=== PATIENT | male | born 1970 | race Caucasian/White ===

== ENCOUNTER 2020-06-29 06:54 | Outpatient (NON) | payer OTHER, SELFPAY ==
[2020-06-29 22:09] LABS: SARS-CoV-2 RNA PCR Negative
== END 2020-06-29 06:55 ==
LOC: ANHCOVIDDT 07:09
PROVIDERS: PCP Internal Medicine; Visit Provider Clinical Nurse Specialist
DX: J02.9 Acute pharyngitis, unspecified (principal); Z20.828 Contact with and (suspected) exposure to other viral communicable diseases
CPT/HCPCS: 87635; C9803; U0003

== ENCOUNTER 2022-02-11 06:30 | Emergency (ER) | payer OTHER, SELFPAY ==
--- NOTE | ~2022-02-11 | CT_ITS ---
EXAMINATION: CT abdomen pelvis w con INDICATION: Chest pain radiating to the abdomen TECHNIQUE: Computed tomographic images of the abdomen and pelvis were obtained after the administrati on of 100 cc of Omnipaque 350 intravenous contrast. The dose-length product (DLP) was 1105.74 mGy-cm. Automated exposure control and iterative reconstruction technique were employed. COMPARISON: 01/01/2011 FINDINGS: Stable nodules on the visualized lung bases are consistent with old granulomatous disease. The heart size is normal. There is mild atelectasis. The liver, spleen, pancreas, and adrenal glands are normal. There appear to be stones in the nondistended gallbladder. The kidneys are unremarkable. No pathologically enlarged abdominal or pelvic lymph nodes are identified. There is no free intraperi toneal gas or evidence of bowel obstruction. Colonic diverticulosis is present without evidence of di verticulitis. The appendix is normal. There is mild lumbar spondylosis. IMPRESSION: 1. Possible cholelithiasis. No definite CT correlate for the patient's symptoms. Reviewed, dictated and finalized at location A. IMPRESSION: 1. Possible cholelithiasis. No definite CT correlate for the patient's symptoms .
--- NOTE | ~2022-02-11 | XR_ITS ---
EXAMINATION: XR chest 2V DATE: 02/11/2022 07:24 INDICATION: Chest pain, elevated blood pressure TECHNIQUE: PA and lateral views of the chest are obtained. COMPARISON: None available FINDINGS: The lungs are free of acute opacities. No pleural effusion or pneumothorax. The cardiomedia stinal silhouette is normal. The visualized bones and soft tissues are unremarkable. IMPRESSION: 1. No acute cardiopulmonary abnormality. Reviewed, dictated and finalized at location A.
--- NOTE | 2022-02-11 06:36 | ECG_ITS ---
Measurements Intervals [place] Rate: 59 P: 74 PA: 143 QRS: 12 QRSD: 89 T: 34 QT: 394 QTc: 393 Interpretive Statements SINUS BRADYCARDIA BORDERLINE ECG NO PREVIOUS ECG AVAILABLE FOR COMPARISON Electronically Signed On 02-11-2022 14:39:52 CDT by Rajinder Perez M.D.
[2022-02-11 06:37] VITALS: BP 144/60; PULSE 64; RESP 20; TEMP 36.8; O2SAT 100
[2022-02-11 06:50] LABS: Basophils Absolute Auto 0.1 K/mm3 (0.0-0.1); Basophils Percent Auto 0.6 % (0.2-1.2); Eosinophils Absolute Auto 0.3 K/mm3 (0-0.3); Eosinophils Percent Auto 3.9 % (0-4.4); Hematocrit 46.3 % (42.0-52.0); Hemoglobin 14.9 g/dL (14.0-18.0); Immature Granulocyte Absolute 0.03 K/mm3 (0.00-0.031); Immature Granulocyte Percent A 0.4 % (0-0.5); Lymphocytes Absolute Auto 2.65 K/mm3 (0.9-3.2); Lymphocytes Percent Auto 33.2 % (18.3-44.2); Mean Corpuscular HGB Conc 32.2 g/dl (32-36); Mean Corpuscular Hemoglobin 29.4 pg (26-34); Mean Corpuscular Volume 91.3 fl (80-100); Mean Platelet Volume 8.8 fl (7.4-10.4); Monocytes Absolute Auto 0.8 K/mm3 (0.1-0.6); Monocytes Percent Auto 9.9 % (2.6-8.5); Neutrophils Absolute Auto 4.1 K/mm3 (1.3-6.7); Platelet Count Result 249 k/mm3 (150-375); Red Blood Count 5.07 M/mm3 (4.6-6.20); Red Cell Distribution Width 13.5 % (11.5-14.5)
[2022-02-11 07:01] LABS: Alanine Aminotransferase 23 U/L (6-50); Albumin Level 4.5 g/dL (3.5-5.1); Alkaline Phosphatase 77 U/L (38-126); Anion Gap 10 mmol/L (8-16); Aspartate Amino Transferase 27 U/L (17-59); Bilirubin,Total 0.3 mg/dL (0.2-1.3); Blood Urea Nitrogen 12 mg/dL (9-20); Calcium 8.9 mg/dL (8.4-10.2); Carbon Dioxide 28 mmol/L (22-30); Chloride 108 mmol/L (98-107); Estimated CRCL calculation 102 ml/min; Estimated Glomerular Filt Rate > 60; Glucose 123 mg/dL (65-110); Lipase 72 U/L (23-300); Potassium 4.1 mmol/L (3.4-5.0); Sodium 146 mmol/L (137-145)
[2022-02-11 07:04] LABS: Partial Thromboplastin Time 27.5 SECONDS (22.3-36.8); Prothrombin Time 12.9 Seconds (11.1-14.7)
[2022-02-11 07:08] VITALS: BP 186/94; PULSE 57; RESP 20; O2SAT 99
--- NOTE | 2022-02-11 07:09 | ED.CHESTPAIN ---
HPI - Chest Pain General Chief Complaint: Chest Pain Stated Complaint: CP Time Seen by Provider: 02/11/22 07:09 Source: patient and family Mode of arrival: ambulatory Limitations: no limitations History of Present Illness HPI narrative: 51 years old white female presented to the ED complaining of chest pain, at the center, radiate down to his upper abdomen woke him up at 4:30 AM. Patient under tremendous amount of stress lately, his father is dying on the vent. Patient denies any fever, chills, nausea, vomiting. Patient took some of his Pepcid without improvement, received 0.5 mg of Ativan with slight improvement Related Data Allergies Allergy/AdvReac Type Severity Reaction Status Date / Time Penicillins Allergy Unknown HIVES Verified 02/11/22 06:39 Review of Systems Review of Systems: All systems reviewed & are unremarkable except as noted in HPI and below PMFSH Past Medical History Medical History Anxiety Bilateral inguinal hernia Uncomplicated 2004, 2009 Palpitations Umbilical hernia Family History Family History Mother Patient's mother is in good health Social History Social History Social History: Caffeine-daily Smoking status: Never smoker Alcohol intake: current Alcohol use details: socially Exam Narrative: General appearance: Well-developed, well-nourished Skin: Normal color Head: Normocephalic, nontraumatic Eyes: Clear conjunctiva ENT: Oropharynx normal, ears normal, nose normal Neck: Supple, nontender Chest and respiratory: Airway patent, no respiratory distress, no accessory muscle use Heart: Regular rate/rhythm Abdomen: Soft, nontender, no organomegaly, quiet bowel sounds Vascular: Normal peripheral pulses, normal capillary refill. Musculoskeletal: Normal range of motion, nontender back Neurologic: Alert and oriented ?3, SULFUR BURNER is normal as tested, no gross motor deficit Course Course Emergency Course: Work-up did not show any significant finding to explain patient condition. Anxiety-like symptom is my concern. Vital Signs Vital signs: Vital Signs Temperature 36.8 C 02/11/22 06:37 Pulse Rate 64 02/11/22 06:37 Respiratory Rate 20 02/11/22 06:37 Blood Pressure 144/60 H 02/11/22 06:37 Pulse Oximetry 100 02/11/22 06:37 Oxygen Delivery Room Air 02/11/22 06:37 Temperature 36.8 C 02/11/22 06:37 Pulse Rate 57 L 02/11/22 07:08 Respiratory Rate 20 02/11/22 07:08 Blood Pressure 186/94 H 02/11/22 07:08 Pulse Oximetry 99 02/11/22 07:08 Oxygen Delivery Room Air 02/11/22 06:37 MDM - Chest Pain Lab Data Result diagrams: 02/11/22 06:41 02/11/22 06:41 Labs: Lab Results 02/11/22 02/11/22 02/11/22 Range/Units 06:41 06:41 06:41 WBC 8.0 (4.5-10.0) K/mm3 RBC 5.07 (4.6-6.20) M/mm3 Hgb 14.9 (14.0-18.0) g/dL Hct 46.3 (42.0-52.0) % MCV 91.3 (80-100) fl MCH 29.4 (26-34) pg MCHC 32.2 (32-36) g/dl RDW 13.5 (11.5-14.5) % Plt Count 249 (150-375) k/mm3 MPV 8.8 (7.4-10.4) fl Immature Gran % (Auto) 0.4 (0-0.5) % Neut % (Auto) 52.0 (45.5-73.1) % Lymph % (Auto) 33.2 (18.3-44.2) % Wallace % (Auto) 9.9 H (2.6-8.5) % Eos % (Auto) 3.9 (0-4.4) % Baso % (Auto) 0.6 (0.2-1.2) % Lymph # (Auto) 2.65 (0.9-3.2) K/mm3 Wallace # (Auto) 0.8 H (0.1-0.6) K/mm3 Eos # (Auto) 0.3 (0-0.3) K/mm3 Baso # (Auto) 0.1 (0.0-0.1) K/mm3 Abs Immat Gran (auto) 0.03 (0.00-0.031) K/mm3 Absolute Neuts (auto) 4.1 (1.3-6.7)
[2022-02-11 07:12] LABS: Troponin I < 0.012 ng/mL (0.000-0.034)
[2022-02-11 07:21] VITALS: O2SAT 99
[2022-02-11] MEDS: ASPIRIN 81 MG CHEWABLE TABLET 324 MG PO (07:27)
[2022-02-11 09:41] VITALS: BP 141/95; PULSE 56; RESP 20; O2SAT 98
[2022-02-11 09:57] LABS: Troponin I < 0.012 ng/mL (0.000-0.034)
[2022-02-11 10:05] VITALS: BP 141/95; PULSE 58; RESP 22; O2SAT 97
== END 2022-02-11 10:06 | disposition home or self-care (01) ==
PROVIDERS: Preventive Medicine Aerospace Medicine; Emergency Provider Emergency Medicine; PCP Internal Medicine
DX: R07.89 Other chest pain (principal); F41.9 Anxiety disorder, unspecified; R93.2 Abnormal findings on diagnostic imaging of liver and biliary tract; R00.1 Bradycardia, unspecified
CPT/HCPCS: 36415; 71046; 74177; 80053; 83690; 84484; 85025; 85610; 85730; 93005; 99284; A9270; Q9967

== ENCOUNTER 2025-04-22 06:18 | Emergency (ER) | payer OTHER, SELFPAY ==
[2025-04-22] VITALS (10 sets, daily range): BP systolic 137–181; BP diastolic 65–115; PULSE 61–88; RESP 14–20; TEMP 36.6; O2SAT 93–100
--- NOTE | ~2025-04-22 | XR_ITS ---
Examination: XR chest 2V Clinical History: pain middle of chest Comparison: 02/11/2022 Technique: PA and Lateral Findings: Heart size upper limit of normal. Lungs clear. No acute bony abnormality. IMPRESSION: 1. No acute cardiopulmonary findings. Reviewed, dictated and finalized at location R.
--- NOTE | ~2025-04-22 | US_ITS ---
US abdomen limited Indication: Epigastric pain Comparison: None Technique: Hoffmann-scale and color Doppler images were obtained. Findings: LIVER: Moderate increased echogenicity of the liver. . GALLBLADDER/BILIARY: There is cholelithiasis, no wall thickening, no pericholecystic fluid. CBD 4 mm. [place] sign negative. PANCREAS: Pancreas limited by bowel gas. Right Kidney: The right kidney was not imaged. Impression: 1. Cholelithiasis. Moderate hepatic steatosis Reviewed, dictated and finalized at location P. Impression: 1. Cholelithiasis. Moderate hepatic steatosis
--- NOTE | ~2025-04-22 | CT_ITS ---
EXAMINATION: CTA chest abdomen pelvis DATE: 04/22/2025 09:56 INDICATION: Epigastric discomfort radiating to the back TECHNIQUE: Computed tomographic angiography (CTA) of the chest, abdomen and pelvis was performed with 100 cc of Omnipaque-350 intravenous contrast. Additional 3D reconstructions utilizing rotating maximum intensity projection (MIP) were performed. Automated exposure control and iterative reconstruction technique were employed. The dose-length product was 1121.25 mGy-cm. COMPARISON: CT abdomen pelvis dated 02/11/2022 FINDINGS: Chest: Mild dependent atelectasis in the bilateral lower lobes. Unchanged 3 mm noncalcified granulomata the dependent left lower lobe. No pneumonia, pulmonary edema, pleural effusion or pneumothorax. Heart size is normal. No pericardial effusion. Thoracic aorta is normal in caliber with no dissection. No path ologically enlarged thoracic lymphadenopathy. Mild thoracic spondylosis. Abdomen and pelvis: Diffuse hepatic steatosis with focal sparing along the gallbladder fossa. Subtle haziness to the fat abutting the otherwise normal-appearing gallbladder and mild increased prominence of the pericholecystic vasculature which raises some concern for acute cholecystitis. The spleen, pancreas, right kidney and bilateral adrenal glands are normal. Couple low-attenuation left renal cysts the larger measuring 1 cm. Mild diverticulosis along the descending and sigmoid colon without adjacent inflammatory stranding to suggest diverticulitis. Small bowel and appendix are normal. Postoperative change of prior umbilical hernia repair. Bladder is normal. Mild prostatomegaly measuring 4.5 x 3.6 cm. No free intraperitoneal gas or fluid. No pathologically enlarged abdominal or pelvic lymphadenopathy. Abdominal aorta is normal in caliber with no aneurysm or dissection. Minimal scattered nonhemodynamically significant atherosclerotic plaque along the inferior abdominal aorta and a few of the arteries in the pelvis. Mild lumbar levocurvature with mild spondylosis. Mild osteoarthritis at the bilateral hips with subarticular sclerosis at the superior to anterosuperior right femoral head and the anterosuperior left femoral head consistent with osteonecrosis. IMPRESSION: 1. Unremarkable CT angiography of the chest, abdomen and pelvis with no evident aneurysms, hemodynamically significant stenosis or dissection. 2. Mild pericholecystic hyperemia and subtle inflammatory stranding which raises some suspicion for acute cholecystitis. Correlate for Barriga sign and could consider right upper quadrant ultrasound for further evaluation as clinically indicated. 3. Diffuse hepatic steatosis. 4. Osteonecrosis at the bilateral femoral heads Reviewed, dictated and finalized at location A. IMPRESSION: 1. Unremarkable CT angiography of the chest, abdomen and pelvis with no evident aneurysms, hemodynamically significant stenosis or dissection. 2. Mild pericholecystic hyperemia and subtle inflammatory stranding which raise s some suspicion for acute cholecystitis. Correlate for Barriga sign and could c onsider right upper quadrant ultrasound for further evaluation as clinically in dicated. 3. Diffuse hepatic steatosis. 4. Osteonecrosis at the bilateral femoral heads
--- OUTSIDE RECORDS SUMMARY | 2025-04-22 06:21 | XMS_ITS | Clinical Summary ---
Author Organization [facility] Address [address] [place] [address] Care Team Providers Care Legal Archivist Name Role Phone Unknown, Provider Primary Care Provider Unavaila ble Source Comments [facility],non-owned Affiliates and Associated Physician Practices is amultiple site organization consisting of ambulatory clinics and hospital sitesin [place], [place], [place] and [place]. This disclosure is being madepursuant to the Care Everywhere program and may not contain all information available regarding this patient. Last updated 18.[facility] Allergies Active Allergy Reactions Criticality Noted Date Comments Penicillins Unknown 07/14/2021 Medications * Be aware that medications may not be up to date on this document. Alwaysverify current medications with the patient. sertraline (Zoloft) 100 MG tablet Take 1 (one) tablet by mouth once daily 4 Active Zepbound 2.5 MG/0.5ML injection Inject 2.5 (two and one-half) mg subcutaneously every 7 days (once a week) 5 Active Active Problems Problem Noted Date Diagnosed Date Neoplasm of uncertain behavior of skin 4 Melanocytic nevi of trunk 12/09/2023 Seborrheic keratosis 12/09/2023 Lentigines 12/09/2023 Actinic keratosis 12/09/2023 Social History Tobacco Use Types Packs/Day Years Used Date Smoking Tobacco: Never Smokeless Tobacco: Never Tobacco Cessation:Counseling Given: Not Answered Sex and Gender Information Value Date Recorded Sex Assigned at Not on file Legal Sex Male 12:21 PM CDT Gender Identity Not on file Sexual Orientation Not on file Plan of Treatment Upcoming Encounters Date Type Department Care Team (Late st Contact Info) Description 06/01/2025 8:50 AM TAXICAB COORDINATOR Office Visit [facility] - Dermatology [address] [place] [address] Frantz Sosa MD [address] [place] [address] Health Maintenance Due Date Last Done Comments COLOGUARD (AGES 45-75) - COL ON CA SCREENING 1970 COLON MONITORING 1970 COLONOSCOPY - COLON CA SCREENING 1970 CT COLONOGRAPHY - COLON CA SCREENING 1970 Colorectal Cancer Screening 1970 FIT - COLON CA SCREENING 1970 FLEX SIG - COLON CA SCREENING 1970 LIPID TESTING 1970 HIV SCREENING 1985 HEPATITIS C SCREENING 03/26/1988 DTAP/TDAP/TD VACCINES (1 - Tdap) 1989 HEPATITIS B VACCINE (1 of 3 - 19+ 3-dose series) 1989 PNEUMOCOCCAL VACCINE 50+ (1 of 1 - PCV) 2020 ZOSTER VACCINE (1 of 2) 2020 DEPRESSION SCREENING 07/01/2024 COVID-19 VACCINE (1 - 2023-2 5 season) 2025 INFLUENZA VACCINE (#1) 2025 HIB VACCINE Aged Out No longer eligi ble based on patient's age to complete this topic HPV VACCINE Aged Out No longer eligi ble based on patient's age to complete this topic MENINGOCOCCAL (Group B) VACC INE SHARED DECISION-MAKING Aged Out No longer eligibl e based on patient's age to complete this topic MENINGOCOCCAL GROUPS A/C/Y/W VACCINE Aged Out No longer eligible b ased on patient's age to complete this topic Insurance AETNA AETNA Care Teams Legal Archivist Relationship Specialty Start Date End Date Unknown, Provider PCP - General 01/03/23
--- OUTSIDE RECORDS SUMMARY | 2025-04-22 06:21 | XMS_ITS | Encounter Summary ---
Author Organization [facility] Address [address] [place] [address] Care Team Providers Care Sailboat Captain Name Role Phone Unknown, Provider Primary Care Provider Unavaila ble Encounter Details Date Type Department Care Team (Late Contact Info) Description 12/20/2023 Telephone [facility] - Dermatology [address] [place] [phone] Nadja Solorzano MD [address] [place] [phone] Social History Tobacco Use Types Packs/Day Years Used Date Smoking Tobacco: Never Smokeless Tobacco: Never Sex and Gender Information Value Date Recorded Sex Assigned at Not on file Legal Sex Male 12:21 PM CDT Gender Identity Not on file Sexual Orientation Not on file documented as of this encounter Miscellaneous Notes * Telephone Encounter - Laurence Wilkes - 12/20/2023 10:59 AM CDT Booked patient 02/25/24 at 10:50 Left message with patient. documented in this encounter Plan of Treatment Upcoming Encounters Date Type Department Care Team (Late st Contact Info) Description 06/01/2025 8:50 AM BULK RECEIVER Office Visit [facility] - Dermatology [address] [place] [phone] Frantz Sosa MD [address] [place] [phone] documented as of this encounter Visit Diagnoses Not on filedocumented in this encounter Care Teams Sailboat Captain Relationship Specialty Start Date End Date Unknown, Provider PCP - General 01/03/23 documented as of this encounter
--- NOTE | 2025-04-22 06:28 | ECG_ITS ---
Test Date: 2025-04-22 06:30:08 Measurements Intervals [place] Rate: 66 P: 83 MA: 132 QRS: 10 QRSD: 96 T: 50 QT: 384 QTc: 403 Interpretive Statements SINUS RHYTHM WITH OCCASIONAL VENTRICULAR PREMATURE COMPLEXES BORDERLINE ST-T WAVE ABNORMALITY- HIGH LATERAL LEADS BASELINE ARTIFACT- AVF, V3 BORDERLINE ECG No previous ECG available for comparison Electronically Signed On 04-22-2025 07:49:05 CDT by Lai Singh D.O.
[2025-04-22 06:42] LABS: Hematocrit 48.4 % (42.0-52.0); Hemoglobin 16.0 g/dL (14.0-18.0); Immature Granulocyte Percent A 0.3 % (0-0.5); Lymphocytes Absolute Auto 3.00 K/mm3 (0.9-3.2); Mean Corpuscular HGB Conc 33.1 g/dl (32-36); Mean Corpuscular Hemoglobin 29.4 pg (26-34); Mean Corpuscular Volume 88.8 fl (80-100); Nucleated Red Blood Cells Absolute Auto 0.000 K/mm3 (0.0-0.012); Nucleated Red Blood Cells Perc 0.0 % (0.0-0.2); Platelet Count Result 312 k/mm3 (150-375); Red Blood Count 5.45 M/mm3 (4.6-6.20); White Blood Count 9.7 K/mm3 (4.5-10.0)
[2025-04-22] MEDS: ONDANSETRON INJ 4 MG/2 ML VIAL IV PUSH (06:50)
[2025-04-22 06:54] LABS: Alanine Aminotransferase 25 U/L (6-50); Albumin Level 4.8 g/dL (3.5-5.1); Alkaline Phosphatase 87 U/L (38-126); Anion Gap 9 mmol/L (4-12); Aspartate Amino Transferase 29 U/L (17-59); Bilirubin,Total 0.5 mg/dL (0.2-1.3); Blood Urea Nitrogen 15 mg/dL (9-20); Calcium 10.8 mg/dL (8.4-10.2); Carbon Dioxide 28 mmol/L (22-30); Chloride 102 mmol/L (98-107); Estimated CRCL calculation 92 ml/min; Estimated Glomerular Filt Rate > 60; Glucose 113 mg/dL (65-110); INR 1.0; Lipase 79 U/L (23-300); Partial Thromboplastin Time 26.0 Seconds (22.3-36.8); Potassium 4.0 mmol/L (3.4-5.0); Prothrombin Time 13.0 Seconds (11.1-14.7); Sodium 139 mmol/L (137-145); Total Protein 8.8 g/dL (6.3-8.2)
[2025-04-22 07:05] LABS: Troponin I < 0.012 ng/mL (0.000-0.034)
--- NOTE | 2025-04-22 07:22 | ED.GENADULT ---
HPI - General Adult General Chief complaint: Chest Pain Stated complaint: chest pain Time Seen by Provider: 04/22/25 06:59 History of Present Illness HPI narrative: Is a 55-year-old male history of anxiety presenting for chest pain/ epigastric pain. Patient says that 3 M he was woken from sleep by a burning sensation. Originally thought it was in his chest but now he believes it is really in the epigastric area. The pain is nonradiating. It is moderate in intensity. He had pain like this once before when he was very stressed when his father was going to pass away. He states he is very stressed now due to issues with his adult children. He is nauseous without vomiting. No shortness of breath. No diarrhea. He took Tums and Prilosec with no relief. Related Data Allergies Allergy/AdvReac Type Severity Reaction Status Date / Time Penicillins Allergy Unknown HIVES Verified 04/22/25 06:19 [facility] Past Medical History Medical History Screening for metabolic disorder Screening for metabolic disorder Hospital discharge follow-up Bilateral inguinal hernia Uncomplicated 2004, 2009 Palpitations Umbilical hernia Anxiety Family History Family History Mother Patient's mother is in good health Social History Social History Social History: Caffeine-daily Smoking status: Never smoker Alcohol intake: current Alcohol use details: socially Do You Feel Safe in your Home?: Yes Lack of Transportation: No Lack of Food: Never True Current Housing: I Have Housing Concerned About Future Housing: No Difficulty Paying Gas/Electric Bills: No Difficulty Paying for Meds: No Currently Unemployed: No Education: Master's Degree or Higher Difficulty w/ Childcare or Family Care: No Exam Narrative: APPEARANCE: No apparent distress. Head: atraumatic. EYES: EOMI, NOSE: Atraumatic NECK: Trachea midline RESPIRATORY: No increased rate of breathing Clear to auscultation CARDIOVASCULAR: RRR, no peripheral edema ABDOMINAL: tenderness in the epigastric region without guarding or rebound MUSCULOSKELETAl: No obvious deformities NEURO: Alert. Moving 4/4 extremities SKIN:: Warm, dry. Normal color PSYCHIATRIC: Normal affect Course Vital Signs Vital signs: Vital Signs Temperature 97.8 F 04/22/25 06:28 Pulse Rate 70 04/22/25 06:28 Respiratory Rate 14 04/22/25 06:28 Blood Pressure 181/97 H 04/22/25 06:28 Pulse Oximetry 99 04/22/25 06:28 Oxygen Delivery Room Air 04/22/25 06:28 Temperature 97.8 F 04/22/25 06:28 Pulse Rate 88 04/22/25 10:54 Respiratory Rate 18 04/22/25 10:54 Blood Pressure 152/87 H 04/22/25 10:54 Pulse Oximetry 97 04/22/25 10:54 Oxygen Delivery Room Air 04/22/25 06:28 Medical Decision Making MDM Narrative Medical decision making narrative: -Course: 55-year-old male presenting with epigastric pain. Based on history physical peptic ulcer disease as gastritis or the leading differential. Patient's laboratory studies, CTA chest abdomen pelvis and right upper quadrant ultrasound were all negative. Eventually we were able to get the patient's pain under control with multiple rounds of antiemetics and antacids. He eventually needed Valium as he was very anxious and I felt that that was impacting the care that we could provide. I did sit down with the patient discussed all of his results at the end. He has verbalized his understanding. He will be discharged on Protonix/Carafate. He will be given referral to GI for further evaluation treatment. Given return precautions for severe pain, hematemesis, melena or any new or worsening symptoms. -DDX includes but is not limited to: ACS gastritis/ PUD/GERD, pancreatitis -Co-morbidities complicating care: anxiety -External Chart Review: review visit from January 2022 for identical presentation during a period of high stress. Vital Signs Vital Signs: Vital Signs Temperature 97.8 F 04/22/25 06:28 Pulse Rate 70 04/22/25 06:28 Respiratory Rate 14 04/22/25 06:28 Blood Pressure 181/97 H 04/22/25 06:28 Pulse Oximetry 99 04/22/25 06:28 Oxygen Delivery Room Air 04/22/25 06:28 Temperature 97.8 F 04/22/25 06:28 Pulse Rate 88 04/22/25 10:54 Respiratory Rate 18 04/22/25 10:54 Blood Pressure 152/87 H 04/22/25 10:54 Pulse Oximetry 97 04/22/25 10:54 Oxygen Delivery Room Air 04/22/25 06:28 Lab Data 04/22/25 06:35 04/22/25 06:35 Labs: Lab Results 04/22/25 04/22/25 Range/Units 06:35 09:11 WBC 9.7 (4.5-10.0) K/mm3 RBC 5.45 (4.6-6.20) M/mm3 Hgb 16.0 (14.0-18.0) g/dL Hct 48.4 (42.0-52.0) % MCV 88.8 (80-100) fl MCH 29.4 (26-34) pg MCHC 33.1 (32-36) g/dl RDW 13.2 (11.5-14.5) % Plt Count 312 (150-375) k/mm3 MPV 8.7 (7.4-10.4) fl Immature Gran % (Auto) 0.3 (0-0.5) % Neut % (Auto) 57.2 (45.5-73.1) % Lymph % (Auto) 31.0 (18.3-44.2) % [place] % (Auto) 6.9 (2.6-8.5) % Eos % (Auto) 3.8 (0-4.4) % Baso % (Auto) 0.8 (0.2-1.2) % Lymph # (Auto) 3.00 (0.9-3.2) K/mm3 [place] # (Auto) 0.7 H (0.1-0.6) K/mm3 Eos # (Auto) 0.4 H (0-0.3) K/mm3 Baso # (Auto) 0.1 (0.0-0.1) K/mm3 Abs Immat Gran (auto) 0.03 (0.00-0.031) K/mm3 Absolute Neuts (auto) 5.5 (1.3-6.7) K/mm3 Absolute Nucleated RBC 0.000 (0.0-0.012) K/mm3 Nucleated RBC % 0.0 (0.0-0.2) % PT 13.0 (11.1-14.7) Seconds INR 1.0 APTT 26.0 (22.3-36.8) Seconds Sodium 139 (137-145) mmol/L Potassium 4.0 (3.4-5.0) mmol/L Chloride 102 (98-107) mmol/L Carbon Dioxide 28 (22-30) mmol/L Anion Gap 9 (4-12) mmol/L BUN 15 (9-20) mg/dL Creatinine 0.91 (0.7-1.3) mg/dL Estim Creat Clear Calc 92 ml/min Estimated GFR > 60 (59 - ) Glucose 113 H (65-110) mg/dL Calcium 10.8 H (8.4-10.2) mg/dL Total Bilirubin 0.5 (0.2-1.3) mg/dL AST 29 (17-59) U/L ALT 25 (6-50) U/L Alkaline Phosphatase 87 (38-126) U/L Troponin I < 0.012 < 0.012 (0.000-0.034) ng/mL Total Protein 8.8 H (6.3-8.2) g/dL Albumin 4.8 (3.5-5.1) g/dL Lipase 79 (23-300) U/L Discharge Plan Discharge Clinical Impression: Peptic ulcer disease Patient Disposition: Home Condition: Stable Instructions: Antibiotic Form, Gastritis (DC), Diet for Stomach Ulcers and Gastritis (ED) Additional Instructions: He was seen emergency department for abdominal pain. I believe this is due to peptic ulcer disease/gastritis. Please take Carafate and Protonix as instructed. Please call the clinic of the GI physician listed below to arrange close follow-up as you may need an EGD to further evaluate for peptic ulcers. Patient Language: Azerbaijani Prescriptions: New sucralfate [Carafate] 1 gram tablet 1 g PO TID 30 Days Qty: 90 0RF pantoprazole [Protonix] 40 mg tablet,delayed release (DR/EC) 40 mg PO HS 42 Days Qty: 42 0RF No Action tadalafil [Cialis] 20 mg tablet 20 mg PO DAILY PRN (Reason: sexual activity) Qty: 30 0RF Rx Instructions: administer approximately 30min before sexual activity; do not use more than 1 dose per 24hrs Zepbound 10 mg/0.5 mL pen injector 10 mg subcut WEEKLY Qty: 2 1RF Follow-up/Referrals: Dennis Laguna MD [Physician, Gastroenterology] - 3 Days Referral Note: PUD Clinical Impression: Peptic ulcer disease Leonid Del Cid, [Primary Care Provider, Internal Medicine]
[2025-04-22] MEDS: MAG HYDROX/AL HYDROX/SIMETH 30 ML UDC PO (07:24)
[2025-04-22] MEDS: HYDROmorphone HCL INJ (*CRX) 1 MG/ML SYR 0.5 MG IV PUSH (07:24)
[2025-04-22] MEDS: FAMOTIDINE 20 MG/2 ML VIAL IV PUSH (07:24)
--- NOTE | 2025-04-22 09:06 | ECG_ITS ---
Test Date: 2025-04-22 09:14:26 Measurements Intervals [place] Rate: 65 P: 34 NV: 159 QRS: 7 QRSD: 91 T: 49 QT: 382 QTc: 399 Interpretive Statements SINUS RHYTHM BORDERLINE R WAVE PROGRESSION, ANTERIOR LEADS BORDERLINE ECG Compared to ECG 04/22/2025 06:30:08 Ventricular premature complex(es) no longer present Electronically Signed On 04-22-2025 09:34:45 CDT by Lai Singh D.O.
[2025-04-22 09:37] LABS: Troponin I < 0.012 ng/mL (0.000-0.034)
--- NOTE | 2025-04-22 09:46 | PC.NURSE ---
Pt to CT scan via stretcher at this time.
[2025-04-22] MEDS: diazePAM INJ (*CRX) 10 MG/2 ML SYRINGE 5 MG IV PUSH (11:18)
== END 2025-04-22 14:10 | disposition home or self-care (01) ==
PROVIDERS: Student in an Organized Health Care Education/Training Program; Emergency Provider Emergency Medicine; PCP Internal Medicine
DX: K27.9 Peptic ulcer, site unspecified, unspecified as acute or chronic, without hemorrhage or perforation (principal)
CPT/HCPCS: 36415; 71046; 71275; 74174; 76705; 80053; 83690; 84484; 85025; 85610; 85730; 93005; 96374; 96375; 99284; A9270; J1171; J2405; J3360; Q9967